=== PATIENT | female | born 1965 | race Caucasian/White ===

== ENCOUNTER 2018-01-09 22:41 | Emergency (ER) | payer OTHER ==
[~2018-01-09] VITALS: Ht 162.6 cm; Wt 80.0 kg
[~2018-01-09 22:41] MED LIST: ALPR0.5T99 PO; OMEP20CA5 PO; REST30CA PO; Z.0.BCPILL PO
[2018-01-09 22:59] VITALS: BP 144/72; PULSE 60; RESP 18; TEMP 97.9; O2SAT 100
[2018-01-09 23:00] VITALS: BP 160/69; PULSE 60; RESP 16; O2SAT 98
--- NOTE | 2018-01-10 00:03 | PD ---
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 and no other significant past medical history however she's had UTIs in the past last few days she's been feeling weak and some pain in her left flank went to a walk-in clinic was put on Cipro without any imaging and comes in tonight saying she is feeling worse is getting more intense the weakness and radiation of her left pain from the flank is getting worse PFSH Past Medical History Anxiety: Yes Cardiovascular Problems: No Diabetes: No Diminished Hearing: No GERD: Yes Glaucoma: No Hepatitis: No Hiatal Hernia: Yes Hypertension: Yes Medical other: Yes (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,ONE KIDNEY ONLY LEFT SIDE) Respiratory: No Thyroid Disease: No Tetanus Vaccination: < 5 Years Influenza Vaccination: Yes ?: Not LMP: menapause : 4 Para: 3 Miscarriage: 1 Past Surgical History Abdominal Surgery: Yes (HERNIA REPAIR) Section: Yes (X2) Cholecystectomy: Yes Oral Surgery: Yes (WISDOM TEETH REMOVED.) Pacemaker: No Other Surgery: Yes (born with only the left kidney) Social History Alcohol Use: Yes (occasionally) Tobacco Use: No Substance Use: No Allergies-Medications (Allergen,Severity, Reaction): Coded Allergies: Sulfa (Sulfonamide Antibiotics) (Unverified Allergy, Severe, 01/09/18) codeine (Unverified Allergy, Severe, 01/09/18) propoxyphene (Unverified Allergy, Severe, 01/09/18) Reported Meds & Prescriptions Reported Meds & Active Scripts Active Zofran Odt (Ondansetron Odt) 4 Mg Tab 4 Mg SL Q6HR PRN Levaquin (Levofloxacin) 750 Mg Tablet 750 Mg PO DAILY Reported Restoril 30 mg (Temazepam) 30 Mg Cap 30 Mg PO HS Prilosec 20 mg (Omeprazole) 20 Mg Capcr 20 Mg PO DAILY Xanax (Alprazolam) 0.5 Mg Tab 0.5 Mg PO PRN Control Pills (Miscellaneous Medication) Tab 1 Tab PO DAILY Review of Systems Except as stated in HPI: all other systems reviewed are Neg General / Constitutional: No: Fever, Chills Genitourinary: Positive: Flank Pain (weakness) Physical Exam Narrative GENERAL: laying left side up on her right side talking slowly and deliberately , listless SKIN: Warm and dry. HEAD: Atraumatic. Normocephalic. EYES: Pupils equal and round. No scleral icterus. No injection or drainage. ENT: No nasal bleeding or discharge. Mucous membranes pink and moist. NECK: Trachea midline. No JVD. CARDIOVASCULAR: Regular rate and rhythm. RESPIRATORY: No accessory muscle use. Clear to auscultation. Breath sounds equal bilaterally. GASTROINTESTINAL: Abdomen soft, non-tender, nondistended. Hepatic and splenic margins not palpable. BACK MILD LEFT CVA TENDERNESS MUSCULOSKELETAL: Extremities without clubbing, cyanosis, or edema. No obvious deformities. NEUROLOGICAL: Awake and alert. No obvious cranial nerve deficits. Motor grossly within normal limits. Five out of 5 muscle strength in the arms and legs. Normal speech. PSYCHIATRIC: Appropriate mood and affect; insight and judgment normal. Data Data Last Documented VS Orders Orders Complete Blood Count With Diff (01/09/18 23:50) Comprehensive Metabolic Panel (01/09/18 23:50) Urinalysis - C+S If Indicated (01/09/18 23:50) Ed Urine Pregnancytest Poc (01/09/18 23:50) Ct Abd/Pel W/O Iv Contrast (01/09/18 ) Ondansetron Inj (Zofran Inj) (01/10/18 01:00) Ondansetron Inj (Zofran Inj) (01/10/18 00:56) Ceftriaxone Inj (Rocephin Inj) (01/10/18 02:15) Sodium Chlorid 0.9% 500 Ml Inj (Ns 500 M (01/10/18 02:15) Famotidine Inj (Pepcid Inj) (01/10/18 02:15) Acetaminophen (Tylenol) (01/10/18 02:30) Orthostatic Vital Signs (01/10/18 02:38) Labs Laboratory Tests Test 01/10/18 00:03 White Blood Count 8.8 TH/MM3 Red Blood Count 4.33 MIL/MM3 Hemoglobin 12.5 GM/DL Hematocrit 36.7 % Mean Corpuscular Volume 84.8 FL Mean Corpuscular Hemoglobin 28.8 PG Mean Corpuscular Hemoglobin Concent 34.0 % Red Cell Distribution Width 14.3 % Platelet Count 268 TH/MM3 Mean Platelet Volume 8.6 FL Neutrophils (%) (Auto) 78.0 % Lymphocytes (%) (Auto) 15.7 % Monocytes (%) (Auto) 4.4 % Eosinophils (%) (Auto) 1.7 % Basophils (%) (Auto) 0.2 % Neutrophils # (Auto) 6.8 TH/MM3 Lymphocytes # (Auto) 1.4 TH/MM3 Monocytes # (Auto) 0.4 TH/MM3 Eosinophils # (Auto) 0.2 TH/MM3 Basophils # (Auto) 0.0 TH/MM3 CBC Comment DIFF FINAL Differential Comment Urine Color YELLOW Urine Turbidity HAZY Urine pH 6.5 Urine Specific [place] 1.020 Urine Protein NEG mg/dL Urine Glucose (UA) NEG mg/dL Urine Ketones NEG mg/dL Urine Occult Blood NEG Urine Nitrite NEG Urine Bilirubin NEG Urine Urobilinogen LESS THAN 2.0 MG/DL Urine Leukocyte Esterase LARGE Urine RBC 2 /hpf Urine WBC 1 /hpf Urine Squamous Epithelial Cells 4 /hpf Urine Bacteria OCC /hpf Urine Mucus FEW /lpf Microscopic Urinalysis Comment CULT NOT INDICATED Blood Urea Nitrogen 14 MG/DL Creatinine 1.01 MG/DL Random Glucose 108 MG/DL Total Protein 7.7 GM/DL Albumin 4.1 GM/DL Calcium Level 9.1 MG/DL Alkaline Phosphatase 70 U/L Aspartate Amino Transf (AST/SGOT) 34 U/L Alanine Aminotransferase (ALT/SGPT) 33 U/L Total Bilirubin 0.4 MG/DL Sodium Level 135 MEQ/L Potassium Level 4.0 MEQ/L Chloride Level 102 MEQ/L Carbon Dioxide Level 27.0 MEQ/L Anion Gap 6 MEQ/L Estimat Glomerular Filtration Rate 58 ML/MIN [facility] Medical Decision Making Medical Screen Exam Complete: Yes Emergency Medical Condition: Yes Differential Diagnosis UTI , abdo pain pyelonephritis ovrian cyst other Narrative Course UA CT no acute finding , fluid zofran and ceftriaxone IV and continue PO out pt plan Diagnosis Primary Impression: UTI (urinary tract infection) Qualified Codes: N30.00 - Acute cystitis without hematuria Patient Instructions: General Instructions, Urinary Tract Infection in Women ( ED) Scripts Ondansetron Odt (Zofran Odt) 4 Mg Tab 4 MG SL Q6HR Y for Nausea/Vomiting, #15 TAB 0 Refills Prov: Sushant,Dipak MD 01/10/18 Levofloxacin (Levaquin) 750 Mg Tablet 750 MG PO DAILY for Infection, #5 TAB 0 Refills Prov: Dipak Canchola MD 01/10/18 Disposition: 01 DISCHARGE HOME Condition: Good Dipak Canchola MD Jan 10, 2018 00:03
[2018-01-10 00:19] LABS: AUTOMATED NEUTROPHIL # 6.8 TH/MM3 (1.8-7.7); BASOPHIL % 0.2 % (0.0-2.0); EOSINOPHIL # 0.2 TH/MM3 (0-0.4); EOSINOPHIL % 1.7 % (0.0-4.0); HEMATOCRIT 36.7 % (35.0-46.0); HEMOGLOBIN 12.5 GM/DL (11.6-15.3); LYMPH % 15.7 % (9.0-44.0); LYMPHOCYTE # 1.4 TH/MM3 (1.0-4.8); MEAN CELL VOLUME 84.8 FL (80.0-100.0); MEAN CORPUSCULAR HEMOGLOBIN 28.8 PG (27.0-34.0); MEAN PLATELET VOLUME 8.6 FL (7.0-11.0); MONO % 4.4 % (0.0-8.0); MONOCYTE # 0.4 TH/MM3 (0-0.9); PLATELET COUNT 268 TH/MM3 (150-450); RED BLOOD COUNT 4.33 MIL/MM3 (4.00-5.30); RED CELL DISTRIBUTION WIDTH 14.3 % (11.6-17.2); WHITE BLOOD COUNT 8.8 TH/MM3 (4.0-11.0)
[2018-01-10 00:21] LABS: BACTERIA, URINE OCC /hpf; BILIRUBIN, URINE NEG (NEG); BLOOD, URINE NEG (NEG); GLUCOSE,URINE NEG (NEG); KETONE, URINE NEG (NEG); MUCUS URINE FEW /lpf (OCC); NITRITE,URINE NEG (NEG); PH, URINE 6.5 (5.0-8.5); SQUAMOUS EPITHELIAL CELL URINE 4 /hpf (0-5); URINE COLOR YELLOW (YELLW/STRAW); URINE LEUKOCYTE ESTERASE LARGE (NEG)
[2018-01-10 00:35] LABS: ALKALINE PHOSPHATASE 70 U/L (45-117); TOTAL BILIRUBIN ADULT 0.4 MG/DL (0.2-1.0); TOTAL PROTEIN 7.7 GM/DL (6.4-8.2)
[2018-01-10 00:39] LABS: ALBUMIN 4.1 GM/DL (3.4-5.0); ALT (GPT) 33 U/L (10-53); AST (GOT) 34 U/L (15-37); BLOOD UREA NITROGEN 14 MG/DL (7-18); CALCIUM 9.1 MG/DL (8.5-10.1); CHLORIDE 102 MEQ/L (98-107); CREATININE 1.01 MG/DL (0.50-1.00); GLOMERULAR FILTRATION RATE 58 ML/MIN (>89); GLUCOSE,RANDOM 108 MG/DL (74-106); SODIUM (NA) 135 MEQ/L (136-145)
[2018-01-10] MEDS ORDERED: ONDANSETRON HCL 4 MG/2 ML VIAL ONE (00:56)
[2018-01-10] MEDS ORDERED: ONDANSETRON HCL 4 MG/2 ML VIAL IV PUSH ONE (01:00)
--- NOTE | 2018-01-10 01:16 | RADRPT ---
EXAM DATE/TIME: 01/10/2018 00:52 [place] COMPARISON: No previous studies available for comparison. INDICATIONS : Left flank pain. ORAL CONTRAST: No oral contrast ingested. RADIATION DOSE: 16.8 CTDIvol (mGy) MEDICAL HISTORY : Hernia, hiatal. Gastroesophageal reflux disease. Congenital 1 kidney. SURGICAL HISTORY : Cholecystectomy. section. ENCOUNTER: Initial ACUITY: 1 day PAIN SCALE: 5/10 LOCATION: Left flank TECHNIQUE: Volumetric scanning of the abdomen and pelvis was performed. Using automated exposure control and adjustment of the mA and/or kV according to patient size, radiation dose was kept as low as reasonably achievable to obtain optimal diagnostic quality images. DICOM format image data is av ailable electronically for review and comparison. FINDINGS: LOWER LUNGS: The visualized lower lungs are clear. LIVER: Hepatomegaly with diffusely decreased hepatic attenuation and focal fat adjacent the falci form ligament. Gallbladder is surgically absent. SPLEEN: Normal size without lesion. PANCREAS: Within normal limits. KIDNEYS: Right kidney is essentially replaced by several small cysts. Compensatory enlargement of the left kidney which appears unremarkable. No radiopaque renal calculi or hydronephrosis. No contou r deforming abnormality. ADRENAL GLANDS: Within normal limits. VASCULAR: There is no aortic aneurysm. BOWEL/MESENTERY: The stomach, small bowel, and colon demonstrate no acute abnormality. Appendix is not directly visualized. No significant pericecal inflammatory change. There is no free intraperit spencer air or fluid. ABDOMINAL WALL: Within normal limits. RETROPERITONEUM: There is no lymphadenopathy. BLADDER: No wall thickening or mass. REPRODUCTIVE: Within normal limits. INGUINAL: There is no lymphadenopathy or hernia. MUSCULOSKELETAL: Within normal limits for patient age. CONCLUSION: 1. Right kidney is essentially replaced by small cysts consistent with patient's history of congenita lly absent kidney. 2. Compensatory left renal hypertrophy without radiopaque renal calculi or hydronephrosis. 3. Appendix is not directly visualized. No significant pericecal inflammatory change. 4. Hepatomegaly with diffusely decreased hepatic attenuation consistent with hepatic steatosis. Roberto Pittman MD on January 10, 2018 at 1:10 Board Certified Radiologist. This report was verified electronically.
[2018-01-10 02:01] VITALS: BP 124/57; PULSE 51; RESP 16; O2SAT 97
[2018-01-10] MEDS ORDERED: cefTRIAXone INJ 1,000 MG in SODIUM CHLORIDE 0.9% INJ 100 ML IV ONE (02:15)
[2018-01-10] MEDS ORDERED: FAMOTIDINE 20 MG/2 ML VIAL IV PUSH SCH (02:15)
[2018-01-10] MEDS ORDERED: SODIUM CHLORID 0.9% 500 ML INJ 500 ML IV ONE (02:15)
[2018-01-10] MEDS ORDERED: LEVA750T9 PO (02:25)
[2018-01-10] MEDS ORDERED: ZOFR4TAB3 SL (02:25)
[2018-01-10] MEDS ORDERED: ACETAMINOPHEN 325 MG TAB PO ONE (02:30)
[2018-01-10 02:59] VITALS: BP_SYST 125; BP_SYST 140; BP_DIAS 60; BP_DIAS 64; RESP 16
== END 2018-01-10 03:16 | disposition home or self-care (01) ==
LOC: NEPE 22:41
DX: N30.00 Acute cystitis without hematuria (principal); I10 Essential (primary) hypertension
CPT/HCPCS: 74176; 80053; 81001; 84703; 85025; 96365; 96375; 99284; J0696; J2405; J7040